=== PATIENT | female | born 1975 | race African-American/Black ===

== ENCOUNTER 2016-08-08 15:26 | Emergency (ER) | payer MEDICAID ==
[~2016-08-08] VITALS: Ht 172.7 cm; Wt 100.0 kg
[2016-08-08 15:28] VITALS: BP 142/94; PULSE 94; RESP 15; TEMP 97.6; O2SAT 96
--- NOTE | 2016-08-08 15:31 | PD ---
Physical Exam Date Seen by Provider: August 08, 2016 Time Seen by Provider: 15:27 Narrative 41 YOBF C/O LBP WITH PAIN INTO HER L LEG. NO INJURY. DENIES H/O LBP. NO URINARY PROBLEMS. PAIN 9/10 [facility] WAITING FOR BED PLACEMENT MDM Medical Record Reviewed: Yes Supervised Visit with DANA: Robbin Keyes August 08, 2016 15:31
--- NOTE | 2016-08-08 15:35 | PD ---
HPI . low back pain radiating to left leg Chief Complaint: Back/ Neck Pain or Injury Time Seen by Provider: 15:35 Travel History International Travel<30 days: No Contact w/Intl Traveler<30days: No Traveled to known affect area: No History of Present Illness HPI 41-year-old female with history of hypertension & hyperlipidemia here with complaints of lower back pain radiating into her left lower extremity. Patient says she has been experiencing excruciating pain for the past 3 days. She has tried [id number] Aleve and ibuprofen without relief. She thinks she took some of her 's muscle relaxers and states it is not helping. She denies any bowel or bladder dysfunction. She denies any saddle anesthesia. She denies any recent injury. She is ambulatory. [facility] Past Medical History High Cholesterol: Yes Hypertension: Yes ?: Not LMP: 07/10/16 Social History Tobacco Use: Yes Allergies-Medications (Allergen,Severity, Reaction): Coded Allergies: No Known Allergies (Unverified , 08/08/16) Reported Meds & Prescriptions Reported Meds & Active Scripts Active Prednisone 50 Mg Tab 50 Mg PO DAILY Robaxin (Methocarbamol) 500 Mg Tab 500 Mg PO TID Review of Systems General / Constitutional: No: Fever Eyes: No: Visual changes HENT: No: Headaches Cardiovascular: No: Chest Pain or Discomfort Respiratory: No: Shortness of Breath Gastrointestinal: No: Abdominal Pain Genitourinary: No: Dysuria Musculoskeletal: Positive: Pain (lower back to left leg ) Skin: No Rash Neurologic: No: Weakness Psychiatric: No: Depression Endocrine: No: Polydipsia Hematologic/Lymphatic: No: Easy Bruising Physical Exam Narrative GENERAL: AAO x 3, no acute distress, Well-nourished, well-developed patient. SKIN: Warm and dry. No visible rashes or bruising. HEAD: Normocephalic and atraumatic. EYES: No scleral icterus. No injection or drainage. ENT: No nasal drainage noted. Mucous membranes pink. Airway patent. NECK: Supple, trachea midline. No JVD. CARDIOVASCULAR: Regular rate and rhythm without murmurs, gallops, or rubs. RESPIRATORY: Breath sounds equal bilaterally. No accessory muscle use. No rhonchi or rales. GASTROINTESTINAL: Abdomen soft, non-tender, nondistended. EXTREMITIES: No cyanosis or edema. SLR negative b/l BACK: Nontender without obvious deformity. No CVA tenderness. heel walk test negative. strength in LE normal b/l. no paraspinal tenderness. PSYCH: AAO x 3, normal affect. Data Data Last Documented VS Vital Signs Date Time Temp Pulse Resp B/P Pulse Ox O2 Delivery O2 Flow Rate FiO2 08/08/16 15:28 97.6 94 15 142/94 96 Orders Ketorolac Inj (Toradol Inj) (08/08/16 15:45) [facility] Medical Decision Making Medical Screen Exam Complete: Yes Emergency Medical Condition: Yes Medical Record Reviewed: Yes Differential Diagnosis sciatica, lumbar radiculopathy, less likely spinal fracture Narrative Course 41-year-old female here with complaints of low back pain radiating more entire left lower extremity. This appears to be sciatica. I do not believe imaging is indicated. I advised her that she will need to follow-up with her primary care provider for further workup and treatment. I explained to her that the imaging modality of choice would be MRI. This would be done on outpatient basis. I provided her with Toradol here in emergency department I will give her a course of muscle relaxers and steroids at home. Diagnosis Primary Impression: Sciatica Qualified Code: M54.32 - Sciatica of left side Patient Instructions: General Instructions Additional Instructions: Please return to emergency department if your symptoms return or worsen. Follow up with your primary care provider. Take medications as prescribed. Med/Other Pt SpecificInfo: Prescription(s) given Scripts Prednisone 50 Mg Tab50 Mg PO DAILY #5 TAB Prov:Chinedu Camacho MD 08/08/16 Methocarbamol (Robaxin)500 Mg [id number] Mg PO TID #21 TAB Prov:Chinedu Camacho MD 08/08/16 Lianet Avila August 08, 2016 15:35
[2016-08-08] MEDS ORDERED: PRED50 PO (15:41)
[2016-08-08] MEDS ORDERED: ROBA500T PO (15:41)
[2016-08-08] MEDS ORDERED: KETOROLAC TROMETHAMINE 60 MG/2 ML (IM) VIAL IM ONE (15:45)
== END 2016-08-08 15:51 | disposition home or self-care (01) ==
LOC: NEPK 15:26
DX: M54.32 Sciatica, left side (principal); I10 Essential (primary) hypertension; Z72.0 Tobacco use
CPT/HCPCS: 96372; 99283; J1885